=== PATIENT | male | born 1985 | race Caucasian/White ===

== ENCOUNTER 2018-08-19 01:32 | Emergency (ER) | payer SELFPAY ==
--- OUTSIDE RECORDS SUMMARY | 2018-08-19 01:34 | XMS REPORT ---
:1985 [facility] Address [address] [place] [address] [address]. [address] [place] [address] Care Team Providers Name Role Phone Unavailable Unavailable Unavailable Payers Payer Name Policy Type Policy Number Effective Date Expiration Date Problems This patient has no known problems. Allergies, Adverse Reactions, Alerts Allergy Allergy Status Severity Reaction(s) Onset Inactive Treating Comments Name Type Date Date Clinician No Known DA Active U 2018-05 Allergies -20 00:00:0 0 Medications This patient has no known medications.
[2018-08-19 02:28] LABS: Absolute Lymphocytes (CBC) 1.1 K/uL (0.7-4.9); Absolute Monocytes 1.5 K/uL (0.1-1.3); Absolute Neutrophil 6.7 K/uL (1.8-8.0); Basophils % 0.4 % (0-1.3); Eosinophils % 0.6 % (0-4.4); Hematocrit 42.9 % (39.6-49.0); Lymphocytes % 11.7 % (15.3-44.8); MPV 7.6 fL (7.6-11.3); Monocytes % 15.7 % (3.3-12.3); RBC Red Blood Cell Count 4.81 M/uL (4.33-5.43)
[2018-08-19 02:43] LABS: BUN Blood Urea Nitrogen 16 mg/dL (7-18); Bicarbonate 30 mmol/L (21-32); Glucose Level 105 mg/dL (74-106); Potassium 4.4 mmol/L (3.5-5.1); Sodium Level 140 mmol/L (136-145)
--- NOTE | 2018-08-19 03:04 | EDPHYS ---
Physician Documentation [facility] Name: Bob Mon Age: 32 yrs Sex: Male : 1985 Arrival Date: 08/19/2018 Time: 01:37 Bed 19 Private MD: ED Physician Brayan Culver HPI: 08/19 02:10 This 32 yrs old Male presents to ER via Ambulatory with complaints of cp Headache, Nasal Congestion. 02:10 The patient presents with sore throat. cp 02:10 Onset: The symptoms/episode began/occurred last week. Severity of symptoms: in the cp emergency department the symptoms are unchanged, despite home interventions. Associated signs and symptoms: Pertinent positives: earache, fever, nasal congestion, headache. Historical: - Allergies: 01:46 No Known Allergies; ak1 - Home Meds: 01:46 None [Active]; ak1 - PMHx: 01:46 None; ak1 - PSHx: 01:46 None; ak1 - Immunization history:: Adult Immunizations unknown. - Social history:: Smoking status: Patient uses tobacco products, smokes one pack cigarettes per day. - Ebola Screening: : No symptoms or risks identified at this time. ROS: 02:15 Constitutional: Negative for fever, poor PO intake. cp 02:15 Eyes: Negative for injury, pain, redness, and discharge. cp 02:15 ENT: Positive for ear pain, sinus congestion, sore throat, Negative for drainage from ear(s), difficulty swallowing, difficulty handling secretions. 02:15 Neck: Negative for stiffness. 02:15 Cardiovascular: Negative for chest pain, edema, palpitations. 02:15 Respiratory: Positive for cough, Negative for wheezing. 02:15 Abdomen/GI: Negative for abdominal pain, vomiting, diarrhea, constipation. 02:15 : Negative for urinary symptoms. 02:15 Skin: Negative for cellulitis, rash. 02:15 Neuro: Positive for headache, Negative for altered mental status, weakness. 02:15 All other systems are negative. Exam: 02:25 Constitutional: The patient appears in no acute distress, alert, awake, non-toxic, well cp developed, well nourished. 02:25 Head/Face: Normocephalic, atraumatic. cp 02:25 Eyes: Periorbital structures: appear normal, Conjunctiva: normal, no exudate, no injection, Sclera: no appreciated abnormality, Lids and lashes: appear normal, bilaterally. 02:25 ENT: External ear(s): are unremarkable, Ear canal(s): are normal, clear, TM's: dullness, bilaterally, Nose: is normal, Mouth: Lips: moist, Oral mucosa: pink and intact, moist, Posterior pharynx: Airway: no evidence of obstruction, patent, Tonsils: bilaterally enlarged, with erythema, with exudate, Uvula: midline, erythema, that is moderate, Voice: is normal. 02:25 Neck: ROM/movement: is normal, is supple, without pain, no range of motions limitations, no meningismus, no nuchal rigidity. 02:25 Chest/axilla: Inspection: normal, Palpation: is normal, no crepitus, no tenderness. 02:25 Cardiovascular: Rate: normal, Rhythm: regular. 02:25 Respiratory: the patient does not display signs of respiratory distress, Respirations: normal, no use of accessory muscles, no retractions, no splinting, no tachypnea, labored breathing, is not present, Breath sounds: are clear throughout, no decreased breath sounds, no stridor, no wheezing. 02:25 Abdomen/GI: Inspection: abdomen appears normal, Palpation: abdomen is soft and non-tender, in all quadrants. 02:25 Back: pain, is absent, ROM is normal. 02:25 Skin: cellulitis, is not appreciated, no rash present. Vital Signs: 01:46 BP 131 / 93; Pulse 72; Resp 16; Temp 97.6(O); Pulse Ox 100% on R/A; Weight 77.11 kg ak1 (R); Height 5 ft. 9 in. (175.26 cm) (R); Pain 7/10; 03:40 BP 138 / 79; Pulse 80; Resp 19; Temp 98.1(O); Pulse Ox 100% on R/A; Pain 5/10; ed1 01:46 Body Mass Index 25.10 (77.11 kg, 175.26 cm) ak1 MDM: 01:50 Patient medically screened. cp 02:30 Differential diagnosis: karan-bird virus, group A strep tonsillitis, altaf's angina, cp mononucleosis, pharyngitis, tonsillitis, uvulitis. 03:02 Data reviewed: vital signs, nurses notes, lab test result(s), and as a result, I will cp discharge patient. 03:02 Counseling: I had a detailed discussion with the patient and/or guardian regarding: the cp historical points, exam findings, and any diagnostic results supporting the discharge/admit diagnosis, lab results, to return to the emergency department if symptoms worsen or persist or if there are any questions or concerns that arise at home. 03:02 Response to treatment: the patient's symptoms have markedly improved after treatment, cp and as a result, I will discharge patient. 08/19 02:03 Order name: CBC with Diff cp 08/19 02:03 Order name: BMP cp 08/19 02:03 Order name: Shasta Screen Profile cp 08/19 02:03 Order name: Strep; Complete Time: 02:51 cp 08/19 02:04 Order name: CBC with Automated Diff; Complete Time: 02:51 EDMS 08/19 02:51 Interpretation: Normal except: LYM% 11.7; MN% 15.7; MNA 1.5. 08/19 02:04 Order name: Basic Metabolic Panel; Complete Time: 02:51 EDMS 08/19 02:52 Interpretation: Normal except: CL 108. 08/19 02:04 Order name: Shasta Screen; Complete Time: 02:51 EDMS 08/19 02:38 Order name: Throat Culture EDMS Administered Medications: 03:09 Drug: Decadron - Dexamethasone 10 mg Route: IVP; Site: right antecubital; ed1 03:41 Follow up: Response: No adverse reaction ed1 03:09 Drug: Clindamycin 900 mg Route: IVPB; Infused Over: 30 mins; Site: right antecubital; ed1 03:41 Follow up: Response: No adverse reaction; IV Status: Completed infusion; IV Intake: [id number] 03:10 Drug: Rocephin 1 grams Route: IV; Rate: bolus; Site: right antecubital; ed1 03:42 Follow up: IV Status: Completed infusion ed1 Disposition: 08/19/18 03:03 Discharged to Home. Impression: Acute tonsillitis. - Condition is Stable. - Discharge Instructions: Tonsillitis. - Prescriptions for Clindamycin HCl 300 mg Oral Capsule - take 1 capsule by ORAL route every 6 hours for 10 days; 40 capsule. Ibuprofen 800 mg Oral Tablet - take 1 tablet by ORAL route every 8 hours As needed take with food; 30 tablet. - Work release form, Medication Reconciliation Form, Thank You Letter, Antibiotic Education, Prescription Opioid Use form. - Follow up: Private Physician; When: 48 Hours; Reason: Worsening of condition. - Problem is new. - Symptoms have improved. Signatures: Dispatcher [employer] EDMS Sonya Griggs RN RN ed1 Elsy Garcia RN RN ak1 Clive Alanis PA PA cp Corrections: (The following items were deleted from the chart) 02:51 02:51 Normal except: LYM% 11.7; MN% 15.7. cp cp 03:42 03:03 08/19/2018 03:03 Discharged to Home. Impression: Acute tonsillitis. Condition is ed1 Stable. Forms are Medication Reconciliation Form, Thank You Letter, Antibiotic Education, Prescription Opioid Use. Follow up: Private Physician; When: 48 Hours; Reason: Worsening of condition. Problem is new. Symptoms have improved. cp
--- NOTE | 2018-08-19 03:04 | ER ---
Nurse's Notes [facility] Name: Bob Mon Age: 32 yrs Sex: Male : 1985 Arrival Date: 08/19/2018 Time: 01:37 Bed 19 Private MD: Diagnosis: Acute tonsillitis Presentation: 08/19 01:45 Presenting complaint: Patient states: nasal congestion, throat pain, headache, "night ak1 sweats" X4 days [employer]. pt had motrin at 2200. Transition of care: patient was not received from another setting of care. Onset of symptoms is unknown. Risk Assessment: Do you want to hurt yourself or someone else? Patient reports no desire to harm self or others. Initial Sepsis Screen: Does the patient meet any 2 criteria? No. Patient's initial sepsis screen is negative. Does the patient have a suspected source of infection? No. Patient's initial sepsis screen is negative. Care prior to arrival: None. 01:45 Method Of Arrival: Ambulatory ak1 01:45 Acuity: JUANA 4 ak1 Triage Assessment: 01:46 Headache History: Denies prior headaches. General: Appears in no apparent distress. ak1 Behavior is calm, cooperative. Pain: Complains of pain in throat, headache Pain currently is 7 out of 10 on a pain scale. Pain began 4days [employer] Also complains of sleeplessness. EENT: Reports nasal congestion. Neuro: Level of Consciousness is awake, alert, obeys commands, Oriented to person, place, time, situation, Composite Bond Technician are equal bilaterally Moves all extremities. Gait is steady, Speech is normal, Facial symmetry appears normal. Cardiovascular: No deficits noted. Respiratory: Reports nasal congestion. GI: No signs and/or symptoms were reported involving the gastrointestinal system. : No signs and/or symptoms were reported regarding the genitourinary system. Derm: No signs and/or symptoms reported regarding the dermatologic system. Musculoskeletal: No signs and/or symptoms reported regarding the musculoskeletal system. 01:48 Respiratory: Onset: The symptoms/episode began/occurred 4 days [employer]PER[employer], the patient has ak1 mild shortness of breath. Historical: - Allergies: 01:46 No Known Allergies; ak1 - Home Meds: 01:46 None [Active]; ak1 - PMHx: :46 None; ak1 - PSHx: 01:46 None; ak1 - Immunization history:: Adult Immunizations unknown. - Social history:: Smoking status: Patient uses tobacco products, smokes one pack cigarettes per day. - Ebola Screening: : No symptoms or risks identified at this time. Screenin:48 Abuse screen: Denies threats or abuse. Denies injuries from another. Nutritional ak1 screening: No deficits noted. Tuberculosis screening: No symptoms or risk factors identified. Fall Risk None identified. Assessment: 01:48 Respiratory: Airway is patent Respiratory effort is even, unlabored. ak1 01:57 General: Appears uncomfortable, Behavior is calm, cooperative. Pain: Complains of pain ed1 in head and throat Pain currently is 7 out of 10 on a pain scale. Quality of pain is described as aching. Neuro: Level of Consciousness is awake, alert, obeys commands, Oriented to person, place, time, situation, Reports headache in entire parietal area, frontal area. Cardiovascular: Denies chest pain, Heart tones S1 S2 present Rhythm is regular. Respiratory: Reports shortness of breath Airway is patent Respiratory effort is even, unlabored, Respiratory pattern is regular, symmetrical, Breath sounds are clear bilaterally. GI: Abdomen is non-distended, Bowel sounds present X 4 quads. Abd is soft and non tender X 4 quads. : No signs and/or symptoms were reported regarding the genitourinary system. EENT: Reports nasal congestion pain when swallowing. Derm: Skin is intact, is healthy with good turgor, Skin is dry, Skin is normal, Skin temperature is warm. Musculoskeletal: Circulation, motion, and sensation intact. Range of motion: intact in all extremities. 03:40 Reassessment: Patient appears in no apparent distress at this time. Patient and/or ed1 family updated on plan of care and expected duration. Pain level reassessed. Patient is alert, oriented x 3, equal unlabored respirations, skin warm/dry/pink. Patient states feeling better. Patient states symptoms have improved. Vital Signs: 01:46 BP 131 / 93; Pulse 72; Resp 16; Temp 97.6(O); Pulse Ox 100% on R/A; Weight 77.11 kg ak1 (R); Height 5 ft. 9 in. (175.26 cm) (R); Pain 7/10; 03:40 BP 138 / 79; Pulse 80; Resp 19; Temp 98.1(O); Pulse Ox 100% on R/A; Pain 5/10; ed1 01:46 Body Mass Index 25.10 (77.11 kg, 175.26 cm) ak1 ED Course: 01:37 Patient arrived in ED. es 01:40 Sonya Griggs, RN is Primary Nurse. ed1 01:46 Triage completed. ak1 01:46 Arm band placed on Patient placed in an exam room, on a stretcher, on pulse oximetry, ak1 Patient notified of wait time. 01:48 Patient has correct armband on for positive identification. Bed in low position. Call ak1 light in reach. Side rails up X 1. Pulse ox on. NIBP on. 01:49 Clive Alanis PA is PHCP. cp 01:49 Brayan Culver MD is Attending Physician. cp 02:13 Initial lab(s) drawn, by me, sent to lab. Strep swab sent to lab. ed1 03:02 Inserted saline lock: 20 gauge in right antecubital area, using aseptic technique. ed1 03:40 No provider procedures requiring assistance completed. IV discontinued, intact, ed1 bleeding controlled, No redness/swelling at site. Pressure dressing applied. Administered Medications: 03:09 Drug: Decadron - Dexamethasone 10 mg Route: IVP; Site: right antecubital; ed1 03:41 Follow up: Response: No adverse reaction ed1 03:09 Drug: Clindamycin 900 mg Route: IVPB; Infused Over: 30 mins; Site: right antecubital; ed1 03:41 Follow up: Response: No adverse reaction; IV Status: Completed infusion; IV Intake: [id number] 03:10 Drug: Rocephin 1 grams Route: IV; Rate: bolus; Site: right antecubital; ed1 03:42 Follow up: IV Status: Completed infusion ed1 Intake: 03:41 IV: 50ml; Total: 50ml. ed1 Outcome: 03:03 Discharge ordered by . cp 03:40 Discharged to home ambulatory. ed1 03:40 Condition: good 03:40 Discharge instructions given to patient, Instructed on discharge instructions, follow up and referral plans. medication usage, Demonstrated understanding of instructions, follow-up care, medications, Prescriptions given X 2. 03:42 Patient left the ED. ed1 Signatures: Sulma Bermudez Erika, RN RN ed1 Elsy Garcia, RN RN ak1 Clive Alanis, OBEY PA cp
[2018-08-19] MEDS ORDERED: DEXAMETHASONE 4 MG/ML VIAL ONE (03:15)
[2018-08-19] MEDS ORDERED: CLINDAMYCIN 900MG/D5W 900 MG/50 ML IVPB IV ONE (03:15)
[2018-08-19] MEDS ORDERED: CEFTRIAXONE/SWI 1gm 1 GM/10 ML SYR ONE (03:15)
== END 2018-08-19 03:42 | disposition home or self-care (01) ==
LOC: ER 01:32
DX: J03.90 Acute tonsillitis, unspecified (principal); Z72.0 Tobacco use; F17.210 Nicotine dependence, cigarettes, uncomplicated
CPT/HCPCS: 36415; 80048; 85025; 86308; 87070; 87081; 96365; 96375; 99284; J0696

== ENCOUNTER 2018-11-19 22:02 | Emergency (ER) | payer SELFPAY ==
--- OUTSIDE RECORDS SUMMARY | 2018-11-19 22:04 | XMS REPORT ---
:1985 [facility] Address [address] [place] [address] [address] Care Team Providers Name Role Phone Unavailable [...]
[2018-11-19] MEDS ORDERED: MORPHINE 2 MG/ML SYR ONE (23:01)
[2018-11-19] MEDS ORDERED: ONDANSETRON 4 MG/2 ML VIAL ONE (23:02)
[2018-11-19 23:12] LABS: Absolute Lymphocytes (CBC) 1.8 K/uL (0.7-4.9); Basophils % 0.8 % (0-1.3); Eosinophils % 1.7 % (0-4.4); Hematocrit 45.3 % (39.6-49.0); Lymphocytes % 25.6 % (15.3-44.8); MPV 7.8 fL (7.6-11.3); RBC Red Blood Cell Count 5.01 M/uL (4.33-5.43)
[2018-11-19 23:30] LABS: Albumin 3.5 g/dL (3.4-5.0); Bilirubin Total 0.6 mg/dL (0.2-1.0); Potassium 3.6 mmol/L (3.5-5.1); Protein, Total 6.5 g/dL (6.4-8.2)
--- NOTE | 2018-11-19 23:58 | ER ---
Nurse's Notes [facility] Name: Bob Mon Age: 33 yrs Sex: Male : 1985 Arrival Date: 11/19/2018 Time: 22:07 Bed 6 Private MD: Diagnosis: Other otitis externa;Cellulitis of left index finger Presentation: 11/19 22:10 Presenting complaint: Patient states: that he is having right ear pain with yellow fc drainage that started a couple of days ago. Also on that day he was working and got his left index finger smashed between two metal plates. It had a blood blister that he popped. Transition of care: patient was not received from another setting of care. Onset of symptoms was November 17, 2018. Risk Assessment: Do you want to hurt yourself or someone else? Patient reports no desire to harm self or others. Initial Sepsis Screen: Does the patient meet any 2 criteria? No. Patient's initial sepsis screen is negative. Does the patient have a suspected source of infection? No. Patient's initial sepsis screen is negative. Care prior to arrival: None. 22:10 Method Of Arrival: Ambulatory 22:10 Acuity: JUANA 4 fc Triage Assessment: 23:00 Injury Description: smash injury. bb Historical: - Allergies: 22:17 No Known Allergies; fc - Home Meds: 22:17 None [Active]; fc - PMHx: 22:17 None; fc - PSHx: 22:17 None; fc - Immunization history:: Last tetanus immunization: unknown. - Social history:: Smoking status: Patient uses tobacco products, smokes one pack cigarettes per day. Patient/guardian denies using alcohol, street drugs. - Ebola Screening: : Patient negative for fever greater than or equal to 101.5 degrees Fahrenheit, and additional compatible Ebola Virus Disease symptoms Patient denies exposure to infectious person Patient denies travel to an Ebola-affected area in the 21 days before illness onset. Screenin:17 Abuse screen: Denies threats or abuse. Nutritional screening: No deficits noted. fc Tuberculosis screening: No symptoms or risk factors identified. Fall Risk None identified. Assessment: 22:56 General: Appears in no apparent distress. uncomfortable, Behavior is calm, cooperative. bb Pain: Complains of pain in left index finger. Neuro: Level of Consciousness is awake, alert, obeys commands, Oriented to person, place, time, situation. Cardiovascular: Heart tones S1 S2 present Capillary refill < 3 seconds Patient's skin is warm and dry. Respiratory: Airway is patent Respiratory effort is even, unlabored, Respiratory pattern is regular, Breath sounds are clear bilaterally. GI: No signs and/or symptoms were reported involving the gastrointestinal system. Derm: Skin is pink, warm \T\ dry. Musculoskeletal: Circulation, motion, and sensation intact. Reports pain in left index finger swelling to left index finger with small laceration to pad of finger which pt self-inflicted to relieve pressure. 23:04 Reassessment: pt states he has had a recent tetanus shot while in senior care. Jean BARNHART bb notified. 11/20 00:06 Reassessment: pt resting quietly, resp unlabored, notified he needs transportation home bb after administration of narcotics pt verbalized understanding and will call family. 02:48 Reassessment: pt appears to be sleeping, eyes closed, resp unlabored, arouses easily, bb signed the AMA form. Vital Signs: 11/19 22:10 Weight 77.11 kg (R); Height 5 ft. 9 in. (175.26 cm) (R); Pain 10/10; fc 22:16 BP 123 / 84; Pulse 84; Resp 18; Temp 98.4(O); Pulse Ox 98% on R/A; oe 23:39 BP 109 / 80; Pulse 78; Resp 14 S; Temp 98.3(O); Pulse Ox 97% on R/A; ak1 11/20 00:07 BP 114 / 70; Pulse 73; Resp 16 S; Pulse Ox 97% on R/A; bb 02:49 BP 110 / 71; Pulse 67; Resp 16 S; Temp 97.8(O); Pulse Ox 98% ; bb 11/19 22:10 Body Mass Index 25.10 (77.11 kg, 175.26 cm) fc ED Course: 11/19 22:07 Patient arrived in ED. es 22:10 Arm band placed on Patient placed in an exam room, on a stretcher. fc 22:15 [facility] jm 22:15 Clive Toney MD is Attending Physician. jmm 22:16 Triage completed. fc 22:17 Patient has correct armband on for positive identification. Bed in low position. Call fc light in reach. Pulse ox on. NIBP on. 22:17 No provider procedures requiring assistance completed. fc 22:40 Hand Left 3 View XRAY In Process Unspecified. EDMS 22:52 Inserted saline lock: 18 gauge in left forearm, using aseptic technique. Blood oe collected. 22:56 Claudia Oreilly, RN is Primary Nurse. bb Administered Medications: 22:58 Drug: morphine 4 mg Route: IVP; Site: left forearm; bb 23:35 Follow up: Response: No adverse reaction; No change in condition bb 22:59 Drug: Zofran 4 mg Route: IVP; Site: left forearm; bb 23:35 Follow up: Response: No adverse reaction bb 23:05 Not Given (pt has had a recent tetanus): Tetanus-Diphtheria Toxoid Adult 0.5 ml IM once bb Outcome: 11/20 02:50 AMA AMA form signed bb Condition: stable Instructed on discharge instructions, follow up and referral plans. medication usage, Demonstrated understanding of instructions, follow-up care, medications, Prescriptions given X 2. 02:50 Patient left the ED. bb Signatures: Dispatcher [employer] EDMS Jean Cheng PA PA jmm Salyer, Edna es Chretien, Felicia RN MEDARDO Claudia Oreilly, RN RN Elsy Duque RN RN ak1 Alli Mercado
--- NOTE | 2018-11-19 23:58 | EDPHYS ---
Physician Documentation [facility] Name: Bob Mon Age: 33 yrs Sex: Male : 1985 Arrival Date: 11/19/2018 Time: 22:07 Bed 6 Private MD: ED Physician Clive Toney HPI: 11/19 22:22 This 33 yrs old Male presents to ER via Ambulatory with complaints of Ear jmm infection, Finger Injury. 22:22 The patient or guardian reports injury, pain, swelling. Onset: The symptoms/episode jmm began/occurred acutely, 2 day(s) ago. Modifying factors: The symptoms are alleviated by nothing, the symptoms are aggravated by nothing. This is a 33 year old male with no chronic medical conditions that presents to the ED with complaints of pain to his left index finger. Patients states smashing the finger between two metal plates and then cutting his finger to drain a blister. Patient complains of increased pain with swelling. Patient also complains of pain to his right ear with drainage. . Historical: - Allergies: 22:17 No Known Allergies; fc - Home Meds: 22:17 None [Active]; fc - PMHx: 22:17 None; fc - PSHx: 22:17 None; fc - Immunization history:: Last tetanus immunization: unknown. - Social history:: Smoking status: Patient uses tobacco products, smokes one pack cigarettes per day. Patient/guardian denies using alcohol, street drugs. - Ebola Screening: : Patient negative for fever greater than or equal to 101.5 degrees Fahrenheit, and additional compatible Ebola Virus Disease symptoms Patient denies exposure to infectious person Patient denies travel to an Ebola-affected area in the 21 days before illness onset. ROS: 22:22 Constitutional: Negative for fever, chills, and weight loss. jmm 22:22 Neck: Negative for injury, pain, and swelling, Cardiovascular: Negative for chest pain, palpitations, and edema, Respiratory: Negative for shortness of breath, cough, wheezing, and pleuritic chest pain. 22:22 ENT: Positive for ear pain. 22:22 MS/extremity: Positive for pain, swelling. 22:22 All other systems are negative. Exam: 22:22 Head/Face: atraumatic. Eyes: EOMI, no conjunctival erythema appreciated jmm 22:22 Neck: Trachea midline, Supple Chest/axilla: Normal chest wall appearance and motion. 22:22 Abdomen/GI: Non distended, soft Back: Normal ROM Skin: General appearance color normal Neuro: Awake and alert, normal gait Psych: Behavior is normal, Mood is normal, Patient is cooperative and pleasant 22:22 Constitutional: The patient appears in no acute distress, alert, awake. 22:22 ENT: Ear canal(s): erythema, that is minimal, of the right canal, foreign body, is not appreciated, swelling, that is moderate, of the right canal, TM's: are normal. 22:22 Cardiovascular: Rate: normal, Rhythm: regular. 22:22 Respiratory: the patient does not display signs of respiratory distress, Respirations: normal, Breath sounds: are clear throughout. 22:22 Musculoskeletal/extremity: swelling noted to the left index finger, held in flexion, pain elicited on extension, < 2 sec dist cap refill, NVI. 22:22 Skin: Appearance: Color: normal in color. 22:22 Neuro: Orientation: is normal, Mentation: is normal, Memory: is normal. 22:22 Psych: Behavior/mood is pleasant, cooperative. Vital Signs: 22:10 Weight 77.11 kg (R); Height 5 ft. 9 in. (175.26 cm) (R); Pain 10/10; fc 22:16 BP 123 / 84; Pulse 84; Resp 18; Temp 98.4(O); Pulse Ox 98% on R/A; oe 23:39 BP 109 / 80; Pulse 78; Resp 14 S; Temp 98.3(O); Pulse Ox 97% on R/A; ak1 11/20 00:07 BP 114 / 70; Pulse 73; Resp 16 S; Pulse Ox 97% on R/A; bb 02:49 BP 110 / 71; Pulse 67; Resp 16 S; Temp 97.8(O); Pulse Ox 98% ; bb 11/19 22:10 Body Mass Index 25.10 (77.11 kg, 175.26 cm) fc MDM: 11/19 22:22 Patient medically screened. jordin 23:53 Data reviewed: vital signs, nurses notes. Counseling: I had a detailed discussion with michele the patient and/or guardian regarding: the historical points, exam findings, and any diagnostic results supporting the discharge/admit diagnosis, lab results, the need for outpatient follow up, to return to the emergency department if symptoms worsen or persist or if there are any questions or concerns that arise at home. Refusal of service: The patient/guardian displays adequate decision making capability and despite a detailed discussion of alternatives, benefits, risks, and consequences refuses: Admission to the hospital for further work-up and treatment. 11/20 00:01 ED course: Patient was advised of the need for further evaluation by hand surgery due jmm to concerns for flexor tenosynovitis. Patient was told this could result in permanent disability. . 11/19 22:31 Order name: CBC with Diff; Complete Time: 23:42 [facility] 11/19 22:31 Order name: CMP; Complete Time: 23:42 [facility] 11/19 22:19 Order name: Hand Left 3 View XRAY ar5 11/19 22:31 Order name: ESR; Complete Time: 23:42 [facility] 11/19 22:31 Order name: Saline Lock; Complete Time: 23:01 [facility] Administered Medications: 11/19 22:58 Drug: morphine 4 mg Route: IVP; Site: left forearm; bb 23:35 Follow up: Response: No adverse reaction; No change in condition bb 22:59 Drug: Zofran 4 mg Route: IVP; Site: left forearm; bb 23:35 Follow up: Response: No adverse reaction bb 23:05 Not Given (pt has had a recent tetanus): Tetanus-Diphtheria Toxoid Adult 0.5 ml IM once bb Disposition: 11/20 08:23 Co-signature as Attending Physician, Clive Toney MD I agree with the assessment and jordin plan of care. Disposition: 11/19/18 23:55 Patient has left against medical advice. Impression: Other otitis externa, Cellulitis of left index finger. - Patients states they are going to Home. - Condition is Stable. - Prescriptions for Augmentin 875- 125 mg Oral Tablet - take 1 tablet by ORAL route every 12 hours for 10 days; 20 tablet. Cortisporin- TC 3.3-3-10-0.5 mg/mL Otic Suspension - instill 4 drop by OTIC route every 6 hours; 1 bottle. Follow up: Private Physician; When: 1 - 2 days; Reason: Recheck today's complaints, Continuance of care, Re-evaluation by your physician. - Problem is new. - Symptoms are unchanged. Signatures: Dispatcher [employer] EDClive Mejía MD MD cha Mickail, Joel, PA PA jmm Chretien, Felicia, RN RN Claudia Nguyễn RN RN bb Corrections: (The following items were deleted from the chart) 02:50 11/19 23:55 11/19/2018 23:55 Patients has left against medical advice. Impression: bb Other otitis externa; Cellulitis of left index finger. Patient states they are going to Home. Condition is Stable. Prescriptions for Augmentin 875-125 mg Oral Tablet - take 1 tablet by ORAL route every 12 hours for 10 days; 20 tablet, Cortisporin-TC 3.3-3-10-0.5 mg/mL Otic Suspension - instill 4 drop by OTIC route every 6 hours; 1 bottleFollow up: Private Physician; When: 1 - 2 days; Reason: Recheck today's complaints, Continuance of care, Re-evaluation by your physician. Problem is new. Symptoms are unchanged. michele
--- NOTE | 2018-11-20 08:36 | RAD REPORT ---
EXAM DESCRIPTION: RAD - Hand Left 3 View - 11/19/2018 10:46 pm CLINICAL HISTORY: Left hand pain, blunt force trauma to the second digit COMPARISON: None. FINDINGS: No fracture, dislocation or periosteal reaction noted. No joint abnormality seen. Soft tis jimmy swelling surrounds the second digit. No foreign body in the soft tissues. IMPRESSION: Left second digit soft tissue swelling without fracture identifiable.
== END 2018-11-20 02:50 | disposition left against medical advice (07) ==
LOC: ER 22:02
DX: H60.8X1 Other otitis externa, right ear (principal); L03.012 Cellulitis of left finger; F17.210 Nicotine dependence, cigarettes, uncomplicated
CPT/HCPCS: 36415; 80053; 85025; 85652; 96374; 96375; 99284; J2270; J2405

== ENCOUNTER 2019-05-01 00:19 | Emergency (ER) | payer SELFPAY ==
--- OUTSIDE RECORDS SUMMARY | 2019-05-01 00:21 | XMS REPORT ---
:1985 [facility] [address] [place] [address] [address] [place] [address] Care Team Providers Name Role Phone Unavailable [...]
--- NOTE | 2019-05-01 01:19 | ER ---
Nurse's Notes [facility] Name: Bob Mon Age: 33 yrs Sex: Male : 1985 Arrival Date: 05/01/2019 Time: 00:20 Bed 17 Private MD: Diagnosis: Acute upper respiratory infection, unspecified Presentation: 05/01 00:25 Presenting complaint: Patient states: "Yesterday night I started to have fever, chills cc3 and generalized body aches". Transition of care: patient was not received from another setting of care. Onset of symptoms was April 29, 2019. Risk Assessment: Do you want to hurt yourself or someone else? Patient reports no desire to harm self or others. Initial Sepsis Screen: Does the patient meet any 2 criteria? No. Patient's initial sepsis screen is negative. Does the patient have a suspected source of infection? No. Patient's initial sepsis screen is negative. Care prior to arrival: Medication(s) given: Tylenol and Nyquill taken 30 mins back prior to consult. 00:25 Method Of Arrival: Ambulatory cc3 00:25 Acuity: JUANA 4 cc3 Triage Assessment: 00:25 General: Appears in no apparent distress. comfortable, Behavior is calm, cooperative, cc3 appropriate for age. Pain: Complains of pain in generalized acute body aches. Historical: - Allergies: 00:25 No Known Allergies; cc3 - PMHx: 00:25 None; cc3 - PSHx: 00:25 None; cc3 - Immunization history:: Adult Immunizations not up to date. - Social history:: Smoking status: Patient uses tobacco products, smokes one pack cigarettes per day. - Ebola Screening: : No symptoms or risks identified at this time. Screenin:25 Abuse screen: Denies threats or abuse. Denies injuries from another. Nutritional cc3 screening: No deficits noted. Tuberculosis screening: No symptoms or risk factors identified. Fall Risk Ambulatory Aid- None/Bed Rest/Nurse Assist (0 pts). Gait- Normal/Bed Rest/Wheelchair (0 pts) Mental Status- Oriented to own ability (0 pts). Assessment: 00:25 General: Appears in no apparent distress. uncomfortable, Behavior is calm, cooperative, cc3 appropriate for age. Pain: Complains of pain in generalized acute body aches. Neuro: Level of Consciousness is awake, alert, obeys commands, Oriented to person, place, time, situation, Appropriate for age. Cardiovascular: Denies chest pain, Heart tones S1 S2 present Capillary refill < 3 seconds in bilateral fingers Patient's skin is warm and dry. Respiratory: Airway is patent Respiratory effort is even, unlabored, Respiratory pattern is regular, symmetrical, Breath sounds are clear bilaterally. GI: Abdomen is round non-distended, Bowel sounds present X 4 quads. Abd is soft and non tender X 4 quads. : No signs and/or symptoms were reported regarding the genitourinary system. EENT: No signs and/or symptoms were reported regarding the EENT system. Derm: Skin is intact, is healthy with good turgor, Skin is pink, warm \\T\\ dry. normal. Musculoskeletal: Circulation, motion, and sensation intact. Range of motion: intact in all extremities. 01:30 Reassessment: Patient appears in no apparent distress at this time. Patient and/or cc3 family updated on plan of care and expected duration. Pain level reassessed. Patient is alert, oriented x 3, equal unlabored respirations, skin warm/dry/pink. OBEY Cheng discharged the patient home with prescriptions given. No IV cannula in situ. Patient left ER vitally stable and ambulatory with his . No valuables left in the patient's room. Patient denies pain at this time. Patient states feeling better. Patient states symptoms have improved. Vital Signs: 00:25 BP 115 / 75; Pulse 84; Resp 17 S; Temp 99.1(O); Pulse Ox 98% on R/A; Weight 79.38 kg cc3 (R); Height 5 ft. 9 in. (175.26 cm) (R); Pain 7/10; 01:20 BP 111 / 67; Pulse 89; Resp 16 S; Temp 98.5(O); Pulse Ox 96% on R/A; Pain 0/10; cc3 00:25 Body Mass Index 25.84 (79.38 kg, 175.26 cm) 3 ED Course: 00:20 Patient arrived in ED. ds1 00:21 Jean Cheng PA is PHCP. [facility] 00:21 New Gregg MD is Attending Physician. [facility] 00:25 Rachel Crystal is Primary Nurse. cc3 00:25 Patient has correct armband on for positive identification. Bed in low position. Call cc3 light in reach. Side rails up X2. Pulse ox on. NIBP on. 00:25 Arm band placed on right wrist. Patient notified of wait time. cc3 00:49 Triage completed. cc3 01:30 No provider procedures requiring assistance completed. Patient did not have IV access cc3 during this emergency room visit. Administered Medications: No medications were administered Outcome: 01:18 Discharge ordered by . michele 01:30 Discharged to home ambulatory, with family. cc3 01:30 Condition: stable 01:30 Discharge instructions given to patient, Instructed on discharge instructions, follow up and referral plans. medication usage, Demonstrated understanding of instructions, follow-up care, medications, Prescriptions given X 3. 01:42 Patient left the ED. cc3 Signatures: Jean Cheng PA PA jmm Sanford, Demi ds1 Rachel Crystal cc3
--- NOTE | 2019-05-01 01:19 | EDPHYS ---
Physician Documentation [facility] Name: Bob Mon Age: 33 yrs Sex: Male : 1985 Arrival Date: 05/01/2019 Time: 00:20 Bed 17 Private MD: ED Physician New Gregg HPI: 05/01 00:51 This 33 yrs old Male presents to ER via Ambulatory with complaints of Fever, jmm Chills. 00:51 The patient or guardian reports cough. Onset: The symptoms/episode began/occurred jmm gradually, 1 week(s) ago. Modifying factors: The symptoms are alleviated by nothing. the symptoms are aggravated by nothing. Associated signs and symptoms: Pertinent negatives: sore throat. This is a 33 year old male with no chronic medical conditions that presents to the ED with complaints of cough, congestion beginning 1 week ago with fever beginning last night. . Historical: - Allergies: 00:25 No Known Allergies; cc3 - PMHx: 00:25 None; cc3 - PSHx: 00:25 None; cc3 - Immunization history:: Adult Immunizations not up to date. - Social history:: Smoking status: Patient uses tobacco products, smokes one pack cigarettes per day. - Ebola Screening: : No symptoms or risks identified at this time. ROS: 00:51 Constitutional: Positive for body aches, fever. jmm 00:51 ENT: Positive for sinus congestion, Negative for ear pain, sore throat. 00:51 Respiratory: Positive for cough. 00:51 All other systems are negative. Exam: 00:51 Constitutional: This is a well developed, well nourished patient who is awake, alert, jmm and in no acute distress. Head/Face: atraumatic. Eyes: EOMI, no conjunctival erythema appreciated 00:51 Neck: Trachea midline, Supple Chest/axilla: Normal chest wall appearance and motion. 00:51 ENT: TM's: erythema, that is mild, bilaterally, Posterior pharynx: erythema, that is mild. 00:51 Cardiovascular: Rate: normal, Rhythm: regular. 00:51 Respiratory: the patient does not display signs of respiratory distress, Respirations: normal, Breath sounds: are clear throughout. 00:51 Abdomen/GI: Inspection: abdomen appears normal, Bowel sounds: normal, Palpation: abdomen is soft and non-tender, in all quadrants. 00:51 Back: ROM is normal. 00:51 Musculoskeletal/extremity: ROM: intact in all extremities. 00:51 Skin: Appearance: Color: normal in color. 00:51 Neuro: Motor: is normal. 00:51 Psych: Behavior/mood is pleasant, cooperative. Vital Signs: 00:25 BP 115 / 75; Pulse 84; Resp 17 S; Temp 99.1(O); Pulse Ox 98% on R/A; Weight 79.38 kg cc3 (R); Height 5 ft. 9 in. (175.26 cm) (R); Pain 7/10; 01:20 BP 111 / 67; Pulse 89; Resp 16 S; Temp 98.5(O); Pulse Ox 96% on R/A; Pain 0/10; cc3 00:25 Body Mass Index 25.84 (79.38 kg, 175.26 cm) cc3 MDM: 00:51 Patient medically screened. [facility] 01:17 Data reviewed: vital signs, nurses notes. Counseling: I had a detailed discussion with chanel the patient and/or guardian regarding: the historical points, exam findings, and any diagnostic results supporting the discharge/admit diagnosis, lab results, the need for outpatient follow up, to return to the emergency department if symptoms worsen or persist or if there are any questions or concerns that arise at home. ED course: Patient is alert and non toxic in appearance in the ED. Patient advised to follow up with pcp and otherwise given strict return precautions. Patient understood and agrees with the plan of care. . 05/01 00:22 Order name: Flu [facility] 05/01 00:22 Order name: Strep [facility] 05/01 01:02 Order name: Influenza Screen (A ; Complete Time: 01:03 EDMS 05/01 01:11 Order name: Group A Streptococcus Rapid Sc; Complete Time: 01:17 EDWA Administered Medications: No medications were administered Disposition: 02:02 Co-signature as Attending Physician, New Grgeg MD. pkl Disposition: 05/01/19 01:18 Discharged to Home. Impression: Acute upper respiratory infection, unspecified. - Condition is Stable. - Discharge Instructions: Upper Respiratory Infection, Adult. - Prescriptions for Prednisone 20 mg Oral Tablet - take 3 tablet by ORAL route once daily for 5 days; 15 tablet. Zithromax Z- Parker 250 mg Oral Tablet - take 1 tablet by ORAL route as directed for 5 days Day 1 - take two (2) tablets one time. Day 2, 3, 4 , 5 take one (1) tablet once daily.; 6 tablet. Albuterol Sulfate 90 mcg/actuation - inhale 1-2 puff by INHALATION route every 4-6 hours; 1 Inhaler. - Medication Reconciliation Form, Thank You Letter, Antibiotic Education, Prescription Opioid Use form. - Follow up: Private Physician; When: 2 - 3 days; Reason: Recheck today's complaints, Continuance of care, Re-evaluation by your physician. Signatures: Dispatcher [employer] EDMS New Gregg MD MD pkl Mickail, Joel, PA PA jmm Cordel, Charlene cc3 Corrections: (The following items were deleted from the chart) 01:42 01:18 05/01/2019 01:18 Discharged to Home. Impression: Acute upper respiratory cc3 infection, unspecified. Condition is Stable. Forms are Medication Reconciliation Form, Thank You Letter, Antibiotic Education, Prescription Opioid Use. Follow up: Private Physician; When: 2 - 3 days; Reason: Recheck today's complaints, Continuance of care, Re-evaluation by your physician. michele
[2019-05-01 15:32] VITALS: BP 115/75; TEMP 99.1; O2SAT 98
== END 2019-05-01 01:42 | disposition home or self-care (01) ==
LOC: ER 00:19
DX: J06.9 Acute upper respiratory infection, unspecified (principal); F17.210 Nicotine dependence, cigarettes, uncomplicated
CPT/HCPCS: 87070; 87081; 87804; 99283

== ENCOUNTER 2019-07-23 04:06 | Emergency (ER) | payer SELFPAY ==
--- OUTSIDE RECORDS SUMMARY | 2019-07-23 04:07 | XMS REPORT ---
:1985 [facility] Address [address] [place] [address] [address] [place] [address] Care Team Providers Name Role Phone Unavailable [...]
[2019-07-23] MEDS ORDERED: TETRACAINE HCL 0.5% 4ML OPTH ONE (04:18)
[2019-07-23] MEDS ORDERED: FLUORESCEIN SODIUM 1 MG/WRAP ONE (04:18)
--- NOTE | 2019-07-23 05:14 | EDPHYS ---
Physician Documentation [facility] Name: Bob Mon Age: 33 yrs Sex: Male : 1985 Arrival Date: 07/23/2019 Time: 04:08 Bed 13 Private MD: ED Physician Alexander Brown Historical: - Allergies: 07/23 04:27 No Known Allergies; bb - Home Meds: 04:27 None [Active]; bb - PMHx: 04:27 None; bb - PSHx: 04:27 None; bb - Immunization history:: Adult Immunizations up to date, Last tetanus immunization: pt thinks he had a tetanus shot 3 months ago for laceration. - Coronavirus screen:: The patient has NOT traveled to [place] in the past 14 days. Proceed with normal triage process as indicated. - Social history:: Smoking status: Patient reports the use of cigarette tobacco products, smokes one pack cigarettes per day. - Ebola Screening: : No symptoms or risks identified at this time. Vital Signs: 04:27 BP 115 / 74; Pulse 78; Resp 16 S; Temp 97.5(O); Pulse Ox 98% on R/A; Weight 83.91 kg bb (R); Height 5 ft. 9 in. (175.26 cm) (R); Pain 8/10; 04:27 Body Mass Index 27.32 (83.91 kg, 175.26 cm) bb Visual Acuity: 04:27 Left Eye Visual acuity 20/30, ; Right Eye Visual acuity 20/20, ; Both Eyes Visual bb acuity 20/20; Without Lenses; MDM: 04:31 Patient medically screened. tw4 07/23 04:32 Order name: Eye Tray; Complete Time: 04:32 bb 07/23 04:32 Order name: Fluoresene Opth strip; Complete Time: 04:32 bb Administered Medications: 04:32 Drug: Tetracaine Drops 0.5 % 1 drops Route: Ophthalmic; Site: left eye; bb 04:32 Follow up: Response: No adverse reaction bb 04:32 Drug: Fluorescein Strip 1 strip Route: Ophthalmic; Site: left eye; bb 04:33 Follow up: Response: No adverse reaction bb Disposition: 07/23/19 05:12 Discharged to Home. Impression: Foreign body in conjunctival sac, left eye, Foreign body in conjunctival sac, Corneal abrasion left eye. - Condition is Stable. - Discharge Instructions: Corneal Abrasion, Eye Foreign Body, [id number]. - Prescriptions for Gentamicin 0.3 % Ophthalmic Drops - instill 1 drop by OPHTHALMIC route every 4 hours for 7 days; 1 bottle. - Medication Reconciliation Form, Thank You Letter, Antibiotic Education, Prescription Opioid Use form. - Follow up: Private Physician; When: Upon discharge from the Emergency Department; Reason: Recheck today's complaints, Continuance of care, Re-evaluation by your physician. Follow up: Pavel Taylor MD; When: Upon discharge from the Emergency Department; Reason: Recheck today's complaints, Continuance of care. - Problem is new. - Symptoms have improved. Addendum: 09/02/2019 04:58 Addendum: HPI: Pt is a 33 year old male that comes to the ED with history of metal in t w4 the left eye. Pt states that his left eye is irritated bu the does not have any changes in his vision. Pt states that he does not know when this occurred.. Addendum: ROS:Eye: positive for foreign body,negative for visual changes All other systems negative except as marked. Addendum: PE: Eye: PERRLA, EOMI conjuctiva injected, cornea stained with fluorescein FB located at 9 oclock, . Addendum: ED course: Fb body not removed secondary inadequate equipment availability, pt's visual acuity and vision is not affected. pt can followup with ophthalmology Dr Taylor in am . Signatures: Claudia Oreilly RN RN bb Habalo, Winsy wh Wadley, Terrence, MD MD tw4 Corrections: (The following items were deleted from the chart) 07/23 05:13 05:12 07/23/2019 05:12 Discharged to Home. Impression: Foreign body in conjunctival tw4 sac, left eye; Foreign body in conjunctival sac; Corneal abrasion left eye. Condition is Stable. Forms are Medication Reconciliation Form, Thank You Letter, Antibiotic Education, Prescription Opioid Use. Follow up: Private Physician; When: Upon discharge from the Emergency Department; Reason: Recheck today's complaints, Continuance of care, Re-evaluation by your physician. Problem is new. Symptoms have improved. tw 05:20 05:13 07/23/2019 05:12 Discharged to Home. Impression: Foreign body in conjunctival wh sac, left eye; Foreign body in conjunctival sac; Corneal abrasion left eye. Condition is Stable. Forms are Medication Reconciliation Form, Thank You Letter, Antibiotic Education, Prescription Opioid Use. Follow up: Private Physician; When: Upon discharge from the Emergency Department; Reason: Recheck today's complaints, Continuance of care, Re-evaluation by your physician. Follow up: Pavel Taylor; When: Upon discharge from the Emergency Department; Reason: Recheck today's complaints, Continuance of care. Problem is new. Symptoms have improved. tw4
--- NOTE | 2019-07-23 05:14 | ER ---
Nurse's Notes [facility] Name: Bob Mon Age: 33 yrs Sex: Male : 1985 Arrival Date: 07/23/2019 Time: 04:08 Bed 13 Private MD: Diagnosis: Foreign body in conjunctival sac, left eye;Foreign body in conjunctival sac;Corneal abrasion left eye Presentation: 07/23 04:25 Presenting complaint: Patient states: he has a piece of metal in his left eye not sure bb exactly when it happened but left eye is irritated. Transition of care: patient was not received from another setting of care. Onset of symptoms was July 23, 2019. Risk Assessment: Do you want to hurt yourself or someone else? Patient reports no desire to harm self or others. Initial Sepsis Screen: Does the patient meet any 2 criteria? No. Patient's initial sepsis screen is negative. Does the patient have a suspected source of infection? No. Patient's initial sepsis screen is negative. Care prior to arrival: None. 04:25 Method Of Arrival: Ambulatory bb 04:25 Acuity: JUANA 4 bb Historical: - Allergies: 04:27 No Known Allergies; bb - Home Meds: 04:27 None [Active]; bb - PMHx: 04:27 None; bb - PSHx: 04:27 None; bb - Immunization history:: Adult Immunizations up to date, Last tetanus immunization: pt thinks he had a tetanus shot 3 months ago for laceration. - Coronavirus screen:: The patient has NOT traveled to [place] in the past 14 days. Proceed with normal triage process as indicated. - Social history:: Smoking status: Patient reports the use of cigarette tobacco products, smokes one pack cigarettes per day. - Ebola Screening: : No symptoms or risks identified at this time. Screenin:29 Abuse screen: Denies threats or abuse. Nutritional screening: No deficits noted. bb Tuberculosis screening: No symptoms or risk factors identified. Fall Risk None identified. Assessment: 04:29 General: Appears in no apparent distress. Behavior is calm, cooperative. Pain: bb Complains of pain in left eye Pain currently is 8 out of 10 on a pain scale. Neuro: Level of Consciousness is awake, alert, obeys commands, Oriented to person, place, time, situation. Cardiovascular: No deficits noted. Respiratory: Respiratory effort is even, unlabored, Respiratory pattern is regular. GI: No deficits noted. No signs and/or symptoms were reported involving the gastrointestinal system. EENT: Eyes with foreign body noted in cornea of left eye Reports pain in left eye. Derm: Skin is pink, warm \T\ dry. Musculoskeletal: Circulation, motion, and sensation intact. Vital Signs: 04:27 BP 115 / 74; Pulse 78; Resp 16 S; Temp 97.5(O); Pulse Ox 98% on R/A; Weight 83.91 kg bb (R); Height 5 ft. 9 in. (175.26 cm) (R); Pain 8/10; 04:27 Body Mass Index 27.32 (83.91 kg, 175.26 cm) bb Visual Acuity: 04:27 Left Eye Visual acuity 20/30, ; Right Eye Visual acuity 20/20, ; Both Eyes Visual bb acuity 20/20; Without Lenses; ED Course: 04:08 Patient arrived in ED. cl3 04:25 Claudia Oreilly, RN is Primary Nurse. bb 04:26 Triage completed. bb 04:27 Arm band placed on Patient placed in an exam room, on a stretcher, on pulse oximetry. bb 04:29 Patient has correct armband on for positive identification. Call light in reach. Pulse bb ox on. NIBP on. 04:29 Assist provider with eye exam of left eye. using fluorescein stain, Performed by bhavesh Brown MD Patient tolerated well. 04:31 Alexander Brown MD is Attending Physician. tw4 05:13 Pavel Taylor MD is Referral Physician. tw4 05:19 Patient did not have IV access during this emergency room visit. Administered Medications: 04:32 Drug: Tetracaine Drops 0.5 % 1 drops Route: Ophthalmic; Site: left eye; bb 04:32 Follow up: Response: No adverse reaction bb 04:32 Drug: Fluorescein Strip 1 strip Route: Ophthalmic; Site: left eye; bb 04:33 Follow up: Response: No adverse reaction bb Outcome: 05:12 Discharge ordered by . tw4 05:19 Discharged to home ambulatory. 05:19 Condition: stable 05:19 Discharge instructions given to patient, Instructed on discharge instructions, follow up and referral plans. medication usage, POC Demonstrated understanding of instructions, follow-up care, medications, POC Prescriptions given X 1. 05:20 Patient left the ED. wh Signatures: Claudia Oreilly RN RN bb Habalo, Winsy wh Wadley, Terrence, MD MD tw4 Elizabeth Maxwell cl3
== END 2019-07-23 05:20 | disposition home or self-care (01) ==
LOC: ER 04:06
DX: T15.12XA Foreign body in conjunctival sac, left eye, initial encounter (principal); F17.210 Nicotine dependence, cigarettes, uncomplicated
CPT/HCPCS: 99284